=== PATIENT | female | born 1985 | race Caucasian/White ===

== ENCOUNTER 2022-05-16 14:21 | Outpatient (CLI) | payer OTHER, SELFPAY ==
--- NOTE | 2022-05-16 14:30 | CRLHL7_ITS ---
For Patients: As a result of the Century Cures Act, medical imaging exams and procedure reports are released immediately into your electronic medical record. You may view this report before your referring provider. If you have questions, please contact your health care provider. BILATERAL BREAST MRI WITHOUT AND WITH GADOLINIUM, 05/16/2022 CLINICAL HISTORY: 37-year-old female with LEFT nipple discharge for 1 year, reportedly spontaneous from a single duct, mammogram and ultrasound negative. INDICATION FOR BREAST MRI: Problem-solving breast MRI. COMPARISON STUDIES: Mammogram and LEFT breast ultrasound 04/11/2022 CONTRAST: 15 cc of dotarem. TECHNIQUE: The patient was positioned prone using a breast coil. Multiple imaging sequences were obtained using 1-1.5 mm thick slices with no gap. The image sequences include T2-weighted STIR in the axial plane, T1-weighted nonfat-saturated gradient echo in the axial plane, pre- and post-contrast T1-weighted FLASH 3D with fat suppression in the axial plane, and T1-weighted FLASH high resolution 3D with fat suppression in the sagittal plane. Image post-processing was performed on a [employer] workstation. Complex 3D rendering including maximum intensity projections (MIPS) and volumetric renderings were obtained to optimize visualization of the extent of pathology and relationship to the nipple, skin, and chest wall. This aids in determining feasibility of breast conservation surgery. Subtraction, multiplanar reconstruction, mean curve determination, and angiogenesis mapping were also performed. The study was technically adequate. FINDINGS: Amount of Fibroglandular Tissue: Scattered fibroglandular tissue. Breast Background Enhancement: Mild. RIGHT Breast: No suspicious areas of enhancement. LEFT Breast: There is slightly clumped non mass enhancement in a linear distribution at approximately 5-6 o`clock, middle to anterior depth spanning 2.2 x 0.3 cm. Lymph Nodes: No lymphadenopathy. IMPRESSIONS AND RECOMMENDATIONS: 1. LEFT breast: Non mass enhancement in a linear distribution at approximately 5-6 o`clock, anterior to middle depth is suspicious. MRI-guided biopsy is recommended. 2. RIGHT breast: Negative, there is no MRI evidence of contralateral malignancy. BI-RADS Category 4: Suspicious Dictated by Jazmin Chahal MD @ 05/19/2022 8:28:11 AM PT/Dictated by: Jazmin Chahal MD @ 05/19/2022 8:28:00 AM (Electronically Signed)
== END 2022-05-16 14:22 | disposition home or self-care (01) ==
LOC: MRI 14:28
PROVIDERS: PCP Family Medicine; Visit Provider Clinical Nurse Specialist Adult Health
DX: N64.52 Nipple discharge (principal)
CPT/HCPCS: 77049; A9575